=== PATIENT | female | born 1980 | race Caucasian/White ===

== ENCOUNTER → 2017-01-13 | Day surgery (SDC) | payer OTHER ==
[~2017-01-13] MED LIST: ABILIFY; ALBUTEROL0.63 MG/3 INH; ASPIRIN325 M1; DICLOFENAC PO; FLEXERIL10 M1 PO; KLONOPIN PO; KLONOPIN1 M1 PO; LEXAPRO PO; LORTAB 10-3251 EACH PO; OXYCONTIN PO; PAIN CREAM TOP; PRAVACHOL; PRENATAL1 TA1 PO; PROAIR HFA8.5 GM INH; SAPHRIS10 MG SL; TOPAMAX PO; ZANAFLEX PO
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
== END | disposition home or self-care (01) ==
LOC: CCSC 11:33
DX: M51.06 Intervertebral disc disorders with myelopathy, lumbar region (principal); M54.16 Radiculopathy, lumbar region
CPT/HCPCS: J1040; J2250; J3301